=== PATIENT | female | born 1995 | race Caucasian/White ===

== ENCOUNTER 2019-02-08 21:02 | Outpatient (CLI) | payer OTHER ==
[2019-02-08] MEDS ORDERED: ONDANSETRON 4 MG INJ IV STA (22:09)
[2019-02-08] MEDS: LACTATED RINGER'S 1,000 ML IV SCH (22:33)
[2019-02-09] MEDS: LACTATED RINGER'S 1,000 ML IV SCH (00:47)
[2019-02-09] MEDS ORDERED: TERBUTALINE 1 MG/ML INJ SC ONE (02:00)
[2019-02-09] MEDS ORDERED: CEFAZOLIN 2 GM/50 ML (PMX) 50 ML IVPB ONE (02:00)
== END 2019-02-09 03:18 | disposition home or self-care (01) ==
LOC: OBT 21:02 → L-D 21:03 → OBT 02-09 03:18
PROVIDERS: ATTEND Obstetrics & Gynecology
DX: O62.9 Abnormality of forces of labor, unspecified (principal); Z3A.35 35 weeks gestation of pregnancy
CPT/HCPCS: 36415; 80053; 81001; 85025; 87086; 96360; 96361; 96366; 96372; J0690; J2405; J3105; J7120; Z7500; G0463

== ENCOUNTER 2019-02-23 13:49 | Outpatient (CLI) | payer BC, OTHER ==
[~2019-02-23] VITALS: Ht 160 cm; Wt 91.6 kg
[~2019-02-23 13:49] MED LIST: CEPH-442 PO; PREN-93 PO
[2019-02-23 14:10] VITALS: Ht 160 cm; Wt 91.6 kg
== END 2019-02-23 16:00 | disposition home or self-care (01) ==
LOC: OBT 13:49 → L-D 13:49 → OBT 16:00
PROVIDERS: ATTEND Obstetrics & Gynecology
DX: O42.92 Full-term premature rupture of membranes, unspecified as to length of time between rupture and onset of labor (principal); Z3A.37 37 weeks gestation of pregnancy
CPT/HCPCS: 76815; 76818; 81001; 84112; G0463